=== PATIENT | male | born 1955 | race Two or more races ===

== ENCOUNTER 2019-08-22 22:42 | Emergency (ER) | payer MEDICAID ==
[~2019-08-22] VITALS: Ht 177.8 cm; Wt 95.3 kg
--- NOTE | 2019-08-22 23:00 | NUR ---
ED Nurse Note: ERMD at bedside.
--- NOTE | 2019-08-22 23:00 | NUR ---
ED Nurse Note: Patient walked into ED from home d/t right toe pain or possible injury. Per pt, his toe twisted underneath his foot while he was using the treadmill. Pain 10/10 with movement. Patient aao x 4 and ambulatory. No acute distress noted at this time.
--- NOTE | 2019-08-22 23:02 | Emergency Room Report ---
History of Present Illness General Chief Complaint: Lower Extremity Injury Source: Patient Present Illness HPI Disclaimer: Please note that this report is being documented using [employer] technology. This can lead to erroneous entry secondary to incorrect interpretation by the dictating instrument. HPI: 64-year-old male presents for evaluation of a right toe injury. He was walking on a treadmill wearing flip-flops earlier today where he stubbed his toe bending it backwards. He is able to walk though is painful. He is concerned it might be broken. He is requesting x-rays. Has not taken any medication yet for the pain. Denies pain in the foot, ankle, knee or hip otherwise. There was no fall or trauma otherwise. PMH: Reviewed PSH: Reviewed Allergies: Aspirin Social Hx: Denies alcohol or drug abuse Allergies: Coded Allergies: ASPIRIN (Verified Allergy, Unknown, 08/22/19) Nursing Documentation-PMH Hx Hypertension: Yes Review of Systems All Other Systems: negative except mentioned in HPI Physical Exam Vital Signs Date Time Temp Pulse Resp B/P (MAP) Pulse Ox O2 Delivery O2 Flow Rate FiO2 08/22/19 22:52 97.9 81 16 166/70 (102) 99 Room Air General: Awake and alert, no acute distress HEENT: NC/AT. EOMI. Resp: Normal work of breathing Skin: Intact. No abrasions, laceration or rash over the exposed skin MSK: Normal tone and bulk. Moving all extremities. No obvious deformity. No tenderness over the anterior posterior aspect of the medial lateral malleolus in the right ankle. No midfoot tenderness. Toes are in anatomic position. No obvious deformity. No significant edema. There is tenderness over the MTPJ of the right great toe. No surrounding erythema or edema. Difficulty with flexion. Neuro: Awake and alert. Mentating appropriately Medical Decision Making Diagnostic Impression: Primary Impression: Dislocation of toe Additional Impressions: Avulsion fracture Injury of toe on right foot ER Course 64-year-old male presents for evaluation of a right toe injury. Will obtain x- rays. Treat with NSAIDs. Anticipate discharge home with outpatient follow-up. Other X-Ray Diagnostic Results Other X-Ray Diagnostic Results : X-Ray ordered: Right toes # of Views/Limited Vs Complete: 3 View Indication: Pain Interpretation: no soft tissue swelling, no fractures, other - Possible dislocation of distal interphalangeal joint Impression: Other - Possible disclocation Electronically Signed by: Electronically signed by Dr. Rusty Ashraf Reevaluation Time: 23:43 Last Vital Signs Date Time Temp Pulse Resp B/P (MAP) Pulse Ox O2 Delivery O2 Flow Rate FiO2 08/22/19 22:52 97.9 81 16 166/70 (102) 99 Room Air Reevaluation Impression Stat rad shows possible dislocation or subluxation of the first IP joint and a possible tiny osseous fragment consistent with a tiny avulsion fracture. Attempted to reduce the joint at bedside though the patient could not tolerate. He would rather follow-up as an outpatient with orthopedic surgery. Will provide him the contact info for the orthopedic urgent care clinic. He will be discharged with NSAIDs and a stiff postop shoe. Instructed to wear stiff soled shoes only. No longer to wear flip-flops. He will be given crutches. Can follow-up with orthopedic surgery at the urgent care or set up through his PMD. Discussed reasons to return to the emergency department patient and his . Understand and agree with the treatment plan. Disposition: HOME, SELF-CARE Condition: Stable Scripts Ibuprofen* (MOTRIN*) 600 Mg Tablet 600 MG ORAL Q8H PRN for For Pain, #30 TAB 0 Refills Prov: Rusty Ashraf MD 08/22/19 Rusty Ashraf MD Aug 22, 2019 23:02
--- NOTE | 2019-08-22 23:08 | NUR ---
ED Nurse Note: X-ray at bedside
[2019-08-22] MEDS ORDERED: IBUPROFEN600 MG ORAL (23:20)
--- NOTE | 2019-08-22 23:32 | Diagnostic Imaging Report ---
EXAM: XR Right Toe(s), 2 or More Views CLINICAL HISTORY: INJ TECHNIQUE: Frontal, lateral and oblique views of toe(s) of the right foot. COMPARISON: No relevant prior studies available. FINDINGS: Bones/joints: Dorsal first IP joint subluxation or dislocation. Tiny osseous fragment seen along the lateral aspect of the distal first phalanx could represent a tiny avulsion fracture. Soft tissues: Surrounding first digit mild soft tissue prominence. No radiopaque foreign body. IMPRESSION: 1. Dorsal first IP joint subluxation or dislocation. 2. Tiny osseous fragment seen along the lateral aspect of the distal first phalanx could represent a tiny avulsion fracture. 3. Surrounding first digit mild soft tissue prominence.
--- NOTE | 2019-08-22 23:40 | NUR ---
ED Nurse Note: ERMD at bedside.
[2019-08-22] MEDS ORDERED: HYDROcodone/Acetamin 7.5/325 tab ORAL ONE (23:45)
[2019-08-22] MEDS ORDERED: NORCO 5-325 TA1 EACH ORAL (23:45)
--- NOTE | 2019-08-22 23:45 | NUR ---
ED Nurse Note: Patient provided with post-op boot on right foot to immobilize toe, tolerated well.
[2019-08-22 23:48] VITALS: BP 148/72
--- NOTE | 2019-08-22 23:48 | NUR ---
ER DISCHARGE NOTE: Pt is cleared for DC per ER provider, pt discharge and aftercare instructions provided, pt verbalized understanding. pt advised to follow up with pcp or return to ED if change in condition, pt verbalized understanding. Vital signs stable, ambulatory w/ steady gait, left w/ all belongings. ID band removed. Pt stable upon discharge.
== END 2019-08-22 23:48 | disposition home or self-care (01) ==
LOC: EMR 23:08
DX: S93.104A Unspecified dislocation of right toe(s), initial encounter (principal); S92.421A Displaced fracture of distal phalanx of right great toe, initial encounter for closed fracture; Z88.6 Allergy status to analgesic agent; I10 Essential (primary) hypertension
CPT/HCPCS: 73660; Z7502; 99283